=== PATIENT | female | born 1950 ===

== ENCOUNTER 2018-09-20 12:19 | Outpatient (CLI) | payer MEDICARE | END 2018-09-20 12:20 | disposition home or self-care (01) | LOC: C.RADH 12:19 | DX: M17.11 Unilateral primary osteoarthritis, right knee (principal) ==

== ENCOUNTER 2018-09-28 13:01 | Outpatient (CLI) | payer MEDICARE | END 2018-09-28 13:02 | disposition home or self-care (01) | LOC: C.MAMMO 13:02 | DX: Z12.31 Encounter for screening mammogram for malignant neoplasm of breast (principal); M81.0 Age-related osteoporosis without current pathological fracture ==